=== PATIENT | female | born 1970 | race Hispanic/Latino ===

== ENCOUNTER 2021-10-30 23:37 | Emergency (ER) | payer OTHER ==
[~2021-10-30] VITALS: Ht 167.6 cm; Wt 90.7 kg
[2021-10-31] MEDS ORDERED: ACETAMINOPHEN 500 MG TABLET PO ONE (00:30)
[2021-10-31 01:22] LABS: BASOPHILS % (AUTO) 0.2 % (0.0-5.0); EOSINOPHILS % (AUTO) 0.1 % (0.0-8.0); HEMATOCRIT 37.3 % (36-48); LYMPHOCYTES % (AUTO) 9.4 % (21.0-51.0); MEAN CORPUSCULAR HEMOGLOBIN 29.9 pg (27.0-33.0); MEAN CORPUSCULAR HGB CONC 34.9 g/dL (32.0-36.0); MEAN CORPUSCULAR VOLUME 85.7 fL (79-99); MONOCYTES % (AUTO) 8.8 % (3.0-13.0); PLATELET COUNT (AUTO) 141 K/uL (130-400); RED BLOOD CELL COUNT(AUTO) 4.35 MIL/uL (4.00-5.50); RED CELL DISTRIBUTION WIDTH 13.2 % (11.0-15.5); WHITE BLOOD COUNT (AUTO) 12.4 K/uL (4.8-10.8)
[2021-10-31] MEDS ORDERED: KETOROLAC 15MG/ML VIAL (15MG/ML) IV ONE (01:30)
[2021-10-31] MEDS ORDERED: SOLU-MEDROL 125MG VIAL IVP ONE (01:30)
[2021-10-31 01:31] LABS: CREATININE 0.8 mg/dL (0.5-1.5); POTASSIUM 3.8 mmol/L (3.5-5.1)
[2021-10-31 01:35] LABS: ALBUMIN 3.1 g/dL (3.5-5.0); BILIRUBIN,TOTAL 0.6 mg/dL (0.2-1.0); TOTAL PROTEIN, SERUM 7.5 g/dL (6.0-8.3)
[2021-10-31 01:41] LABS: APPEARANCE,URINE Cloudy (CLEAR); BILIRUBIN,URINE Negative (NEGATIVE); COLOR,URINE Yellow (YELLOW); GLUCOSE, URINE (UA) >=1000 mg/dL (NEGATIVE); KETONES,URINE 40 mg/dL (NEGATIVE); LEUKOCYTE ESTERASE ,URINE Negative (NEGATIVE); NITRATE,URINE Positive (NEGATIVE); OCCULT BLOOD,URINE Large (NEGATIVE); PROTEIN,URINE POS 2+ mg/dL (NEGATIVE)
[2021-10-31 01:57] LABS: BACTERIA,URINE Many /HPF (None Seen)
[2021-10-31 01:58] LABS: SQUAMOUS EPITHELIAL CELL,UR Moderate /HPF (0-2)
[2021-10-31 02:20] LABS: CRP QUANTITATIVE 257.9 mg/L (0.00-9.0)
[2021-10-31] MEDS ORDERED: NAPR500T6 PO (02:20)
[2021-10-31] MEDS ORDERED: ACET-2079 PO (02:20)
[2021-10-31] MEDS ORDERED: CEPH500B PO (02:20)
[2021-10-31] MEDS ORDERED: 0.9% NACL 500ML IV.SOLN 500 ML IV ONE ×2 (02:23→02:30)
[2021-10-31] MEDS ORDERED: CEFTRIAXONE 1G VIAL IVP ONE (02:30)
[2021-10-31] MEDS ORDERED: PROCHLORPERAZINE 10MG/2ML INJ IV ONE (02:30)
[2021-10-31] MEDS ORDERED: DiphenhydrAMINE HCL 50 MG/ML VIAL IV ONE (02:30)
[2021-10-31 02:41] VITALS: BP 131/79
== END 2021-10-31 02:57 | disposition home or self-care (01) ==
LOC: EDH 23:37
DX: G56.01 Carpal tunnel syndrome, right upper limb (principal); N39.0 Urinary tract infection, site not specified; Z20.822 Contact with and (suspected) exposure to COVID-19; E11.9 Type 2 diabetes mellitus without complications; Z88.2 Allergy status to sulfonamides; Z79.1 Long term (current) use of non-steroidal anti-inflammatories (NSAID); Z79.52 Long term (current) use of systemic steroids
CPT/HCPCS: 36415; 80053; 81001; 85025; 86140; 87077; 87088; 87186; 87635; 87804 ×2; 87880; 96374; 96375; 99284; C9803; J0696; J0780; J1200; J1885; J2930; J7040

== ENCOUNTER 2025-04-08 16:18 | Emergency (ER) | payer BC ==
[~2025-04-08] VITALS: Ht 170.2 cm; Wt 91.9 kg
[~2025-04-08 16:18] MED LIST: ACET-2079 PO; CEPH500B PO; NAPR-1506 PO
[2025-04-08] MEDS: TETRACAINE HCL 0.5% 4 ML OPHTH SOLN OP SCH (17:08)
[2025-04-08] MEDS: FLUORESCEIN SODIUM 1 STRIP STRIP ONE (17:08)
[2025-04-08] MEDS: TETRACAINE HCL 0.5% 4 ML OPHTH SOLN ONE (17:08)
[2025-04-08] MEDS: FLUORESCEIN SODIUM 1 STRIP STRIP OP SCH (17:22)
[2025-04-08] MEDS: HYDROcodone/APAP 5/325 1 TAB TABLET PO SCH (17:24)
--- NOTE | 2025-04-08 17:29 | ERN ---
ED Note History of Present Illness Stated Complaint: EYE ISSUE Chief Complaint: Eye Problems Time Seen by MD: 16:25 Time Seen by Midlevel: 16:25 Dictation: Ms. Castorena is a 55-year-old female with history of hypertension and obesity who presented to the emergency department this afternoon for evaluation of eye problem. She states that yesterday she noticed her right eye was red. Today the entirety of the sclera is red and she states she does have some pain when she squints tightly; rates 6/10. She denies changes in vision. She denies headache. She denies fever, chills, shortness of breath, cough, chest pain, rhinorrhea, sinus pain/pressure, sore throat, abdominal pain, nausea, vomiting, diarrhea, dysuria, or dizziness. Allergies: Uncoded Allergies: SULFA (Allergy, Intermediate, HIVES, 10/30/21) SWELLING HIVES Home Meds Active Scripts Acetaminophen with Codeine (Acetaminophen-Cod #3 Tablet) 1 Each Tablet, 1 EACH PO QID, #15 TAB Prov:ROSALIND PRIEST MD 10/31/21 Cephalexin Monohydrate (Keflex) 500 Mg Cap, 500 MG PO BID for 5 Days, #10 CAP Prov:ROSALIND PRIEST MD 10/31/21 Naproxen (Naproxen) 500 Mg Tablet.dr, 500 MG PO BIDPC for 30 Days, #60 TAB Prov:ROSALIND PRIEST MD 10/31/21 Past Medical History Past Medical History: Hypertension, Other (obesity) Surgical History: Hysterectomy Surgical History Other: PARTIAL HYSTERECTOMY Social History: Negative, Lives with family History: Not Applicable RN Note Reviewed/Agreed w/PFSH: Yes Review of System Dictation REVIEW OF SYSTEMS: CONSTITUTIONAL: Patient denies fevers, chills, sweats and weight changes. EYES: Patient denies any vision changes. Reports redness to the left eye times 24 hours. She states today redness has increased and is painful when she blinks. Reports pain 6/10. EARS, NOSE, AND THROAT: No difficulties with hearing. No symptoms of rhinitis or sore throat. CARDIOVASCULAR: Patient denies chest pains, palpitations, orthopnea and paroxysmal nocturnal dyspnea. RESPIRATORY: No dyspnea on exertion, no wheezing or cough. GI: No nausea, vomiting, diarrhea, constipation, abdominal pain, hematochezia or melena. : No urinary hesitancy or dribbling. No nocturia or urinary frequency. No abnormal urethral discharge. MUSCULOSKELETAL: No myalgias or arthralgias. NEUROLOGIC: No chronic headaches, no seizures. Patient denies numbness, tingling or weakness. PSYCHIATRIC: Patient denies problems with mood disturbance. No problems with anxiety. ENDOCRINE: No excessive urination or excessive thirst. DERMATOLOGIC: Patient denies any rashes or skin changes. Initial Vital Sign VS Vital Signs Date Time Temp Pulse Resp B/P (MAP) Pulse Ox O2 Delivery O2 Flow Rate FiO2 04/08/25 16:20 97.5 73 16 158/94 96 Room Air 0 04/08/25 16:24 21 Physical Exam Dictation Vital signs: Reviewed. Afebrile Constitutional: No acute distress. Non-toxic appearing. Head/Face: Normocephalic, atraumatic. Eyes: Periorbital areas with no swelling, redness, or edema. Lids and lashes are normal. Pupils equal, round, reactive to light. 3 mm. Visual acuity 20/30 OU. EOM intact; no pain with movement. Conjunctiva diffusely injected. Fluorescein exam normal-no uptake, no corneal abrasion, ulcer, dendritic lesion, or foreign body noted. ENT: Pinnas intact and no signs of trauma or erythema. Ear canals clear and no discharge. TMs no erythema. No nasal discharge or bleeding noted. Oropharynx with no exudate, redness, swelling, masses, exudates, or evidence of obs truction. Uvula midline. Mucous membranes moist. No tenderness upon palpation of sinuses. Neck: Trachea midline, no masses palpated, and no cervical lymphadenopathy. No swelling. Supple, full range of motion. Chest/Axilla: No tenderness, no crepitus, no paradoxical movement, no retractions. Cardiovascular: Regular rate, regular rhythm, no murmur, no gallops. Symmetric pulses. No peripheral edema. Respiratory: Respirations even and unlabored. Lung sounds clear; no wheezes, rales or rhonchi. Gastrointestinal: Inspection is normal. No distention is appreciated. Bowel sounds are normal. No mass or organomegaly . There is no tenderness. No rebound. No rigidity. No voluntary or involuntary guarding. No Dudley's sign. Neurological: Normal speech, gross motor function intact, gross sensory function intact. No focal weakness/Paresthesia. Musculoskeletal/Extremities: All extremities have full range of motion, no pain or tenderness on palpation. Symmetric pulses. Integumentary: Intact. Skin is normal color, warm and dry. Cap refill less than 3 seconds. ED Course ED Course Orders Procedure Category Date Status Time Fluorescein Sodium PHA 04/08/25 Complete (Nigzf-L-Btdof At) 17:03 Tetracaine Hcl PHA 04/08/25 Complete (Pontocaine 0.5% 17:03 Tetracaine Hcl PHA 04/08/25 In Process (Pontocaine 0.5% 17:30 Fluorescein Sodium PHA 04/08/25 In Process (Lqfad-R-Tberz At) 17:30 Current Medications Medications (Trade) Dose Ordered Sig/Martin Route PRN Reason Start Time Stop Time Status Last Admin Dose Admin Fluorescein Sodium (Vnfps-F-Ffafy At) 1 strip ONCE OP 04/08/25 17:30 04/08/25 21:30 Fluorescein Sodium (Fwgai-N-Jeovk At) 1 strip STK-MED ONCE .ROUTE 04/08/25 17:03 04/08/25 17:03 DC Tetracaine HCl (Pontocaine 0.5% Ophth Soln) 1 OR 2 DROPS ONCE OP 04/08/25 17:30 04/08/25 21:30 Tetracaine HCl (Pontocaine 0.5% Ophth Soln) 20 drop STK-MED ONCE .ROUTE 04/08/25 17:03 04/08/25 17:04 DC Vital Signs Date Time Temp Pulse Resp B/P (MAP) Pulse Ox O2 Delivery O2 Flow Rate FiO2 04/08/25 16:24 97.5 73 16 158/94 96 Room Air* 0 21 04/08/25 16:20 97.5 73 16 158/94 96 Room Air 0 Uneventful ED course. Vital signs are stable. No vision changes bilateral vi sual acuity 20/30. Fluorescein exam normal-no uptake, corneal abrasion, ulcer, or dendritic lesion, or foreign body. She received dose [place] x1. Findings were discussed with patient and all questions were answered. Medical Decision Making MDM MDM: Differential diagnosis: Conjunctivitis (bacterial, viral, or allergic), episcleritis, blepharitis, preseptal cellulitis Rationale: Tests considered and ordered secondary to shared decision making include: Examination; fluorescein uptake Previous outside records reviewed: Old ER visits. Risk of complication and/or morbidity or mortality of patient management: None Medications-Per medication reconciliation Need for hospitalization: Patient does not meet criteria for hospitalization. Need for emergency major/minor surgery: No There are no social concerns with this patient. Prescription drug management: Ibuprofen Prescriptions will include symptomatic care Patient's prior external medical records from other ER visits were reviewed by me as indicated. Prior testing and results from previous visits were reviewed. Prior tests were taken into account with medical decision making and resource utilization, independent historian/historians were used to obtain complete medical history. I independently interpreted the test that were performed, results were reviewed by me and considered findings on radiology if ordered. Medical management and examination interpretation discussions were had by me with other qualified healthcare professionals as indicated for the patient's care. DX & DISP Disposition: Discharge Departure Impression: Primary Impression: Redness of left eye Additional Impression: Red eye Condition: Stable Additional Instructions: Your eye is red, but your exam today did not show any corneal injury, ulcer, foreign body or other serious abnormality. Your vision is stable, and there are no signs of dangerous infection or injury at this time. Avoid rubbing your eye as this can worsened irritation or introduce infection. You may use artificial tears (lubricating eyedrops, not redness relief drops) several times a day for comfort. Apply cool compress to the closed eyelid for 5-10 minutes at a time if the eye feels irritated or puffy. Do not wear contact lenses. Avoid eye make- up until symptoms clear. Return to the ER or seek medical it [place] immediately if you develop: Sudden for worsening eye pain. Vision changes, blurry in his, or loss of vision. Light sensitivity (photophobia). Swelling, discharge, or redness that rapidly worsens. Any sensation of foreign body that does not improve. See your primary care physician or an ice specialists within 1-3 days if redness or irritation persists return sooner if any new or worsening symptoms occur. Referrals: SELF,REFERRAL (PCP) Time of Disposition: 17:28 KRISTEN GOLD NP Apr 08, 2025 17:29
[2025-04-08 17:30] VITALS: BP 148/90; PULSE 70; RESP 16; TEMP 97.5; O2SAT 98
== END 2025-04-08 17:39 | disposition home or self-care (01) ==
LOC: EDH 16:18
DX: H57.89 Other specified disorders of eye and adnexa (principal); I10 Essential (primary) hypertension; E66.9 Obesity, unspecified; Z88.2 Allergy status to sulfonamides; Z90.711 Acquired absence of uterus with remaining cervical stump; Z68.31 Body mass index [BMI] 31.0-31.9, adult
CPT/HCPCS: 99283

== ENCOUNTER 2025-05-23 19:13 | Emergency (ER) | payer BC ==
[~2025-05-23] VITALS: Ht 167.6 cm; Wt 90.7 kg
--- NOTE | 2025-05-23 19:22 | ERN ---
ED Note History of Present Illness Stated Complaint: C/O PAIN TO LEFT KNEE; PT FELT IT POP AT NOON TODA Chief Complaint: Knee Injury/Swelling Time Seen by MD: 19:17 Dictation: PATIENT IS A 55-YEAR-OLD FEMALE STATES SHE WAS WALKING IN TODAY WHEN SHE FELT A POP TO HER LEFT KNEE AT NOON TODAY. SHE STATES SHE FEELS THE PAIN IS DEEP IN THE KNEE. SHE HAS A BRACE IN PLACE AND STATES SHE HAS HAD A PRIOR PATELLAR DISLOCATION IN THE PAST. THE PILL IS GROSSLY INTACT ON EXAM IN TRIAGE. DISTAL NEUROVASCULAR CMS INTACT. NOTHING PRIOR TO ARRIVAL FOR PAIN. Allergies: Uncoded Allergies: SULFA (Allergy, Intermediate, HIVES, 10/30/21) SWELLING HIVES Home Meds Active Scripts Acetaminophen with Codeine (Acetaminophen-Cod #3 Tablet) 1 Each Tablet, 1 EACH PO QID, #15 TAB Prov:ROSALIND PRIEST MD 10/31/21 Cephalexin Monohydrate (Keflex) 500 Mg Cap, 500 MG PO BID for 5 Days, #10 CAP Prov:ROSALIND PRIEST MD 10/31/21 Naproxen (Naproxen) 500 Mg Tablet.dr, 500 MG PO BIDPC for 30 Days, #60 TAB Prov:ROSALIND PRIEST MD 10/31/21 Past Medical History Past Medical History: Hypertension, Other Surgical History: Hysterectomy Surgical History Other: PARTIAL HYSTERECTOMY Social History: Negative, Lives with family History: Not Applicable RN Note Reviewed/Agreed w/PFSH: Yes Review of System Dictation CONSTITUTIONAL: NEGATIVE EXCEPT FOR HPI HEAD/FACE: NEGATIVE EXCEPT FOR HPI EENT: NEGATIVE EXCEPT FOR HPI RESPIRATORY: NEGATIVE EXCEPT FOR HPI GASTROINTESTINAL/ABDOMINAL: NEGATIVE EXCEPT FOR HPI GENITOURINARY: NEGATIVE EXCEPT FOR HPI MUSCULOSKELETAL: NEGATIVE EXCEPT FOR HPI LEFT KNEE PAIN INTEGUMENTARY: NEGATIVE EXCEPT FOR HPI NEUROLOGICAL/PSYCH: NEGATIVE EXCEPT FOR HPI HEMATOLOGIC/LYMPHATIC: NEGATIVE EXCEPT FOR HPI ALL SYSTEMS NEGATIVE, EXCEPT NOTED ABOVE. 13 POINT REVIEW OF SYSTEMS ASSESSED AND ALL NEGATIVE EXCEPT FOR ABOVE. Initial Vital Sign VS Vital Signs Date Time Temp Pulse Resp B/P (MAP) Pulse Ox O2 Delivery O2 Flow Rate FiO2 05/23/25 19:17 97.2 80 20 132/82 98 Room Air Physical Exam Dictation VITAL SIGNS REVIEWED GENERAL APPEARANCE: ALERT, ORIENTED X 3, MODERATE ACUTE DISTRESS, WELL DEVELOPED, NOURISHED. HEAD AND FACE: NON-TRAUMATIC. EYES: PERRL, PINK CONJUNCTIVAS, EYELID NO TRAUMA, ANTERIOR CHAMBER WITH ARCUS SENILIS. EARS: PINNAS INTACT AND NO SIGNS OF TRAUMA OR ERYTHEMA EAR CANALS CLEAR AND NO DISCHARGE TM NO ERYTHEMA NOSE: NO DISCHARGE, NO BLEEDING. OROPHARYNX: MOUTH NORMAL, TONGUE PINK, PHARYNX CLEAR,NO ERYTHEMA, TONSILS NO EXUDATES, NO ABSCESSES NOTED, MUCOUS MEMBRANE MOIST NECK: SUPPLE, NON-TENDER, NO THYROMEGALY, NO MASSES, NO JVD, NO BRUITS BREAST:DEFERRED CHEST:NO TENDERNESS, NO CREPITUS, NO PARADOXICAL MOVEMENT, NO RETRACTIONS LUNGS:CLEAR, WELL-VENTILATED, SYMMETRIC, NO RALES, NO WHEEZING, NO RHONCHI, NO STRIDOR, GOOD BREATH SOUNDS BILATERALLY HEART: REGULAR RATE, REGULAR RHYTHM, NO MURMUR, NO GALLOPS VASCULAR: NO PERIPHERAL EDEMA, ABDOMEN: SOFT, POSITIVE BOWEL SOUNDS, NONDISTENDED, NO GUARDING, NONTENDER, NO REBOUND, NO MASSES NO HEPATOMEGALY, NO SPLENOMEGALY, NO AN'S SIGN, NO HERNIAS. RECTAL: DEFERRED GENITAL: DEFERRED NEUROLOGICAL: NORMAL SPEECH, MOTOR FUNCTION INTACT, SENSORY FUNCTION INTACT MUSCULOSKELETAL: KNEE BRACE FROM HOME IN PLACE TO LEFT KNEE. PATELLA GROSSLY INTACT ON EXAM. NEUROVASCULAR CMS INTACT. SKIN: COLOR PINK, DRY, NO TURGOR, NO RASH, NO LACERATIONS, NO ABRASIONS, NO C ONTUSIONS. LYMPHATIC: DEFERRED Results (Laboratory/Radiology) Laboratory/Radiology 2030/RIGHT KNEE X-RAY WITH DEGENERATIVE CHANGES ONLY. PATELLA INTACT Labs Reviewed?: Yes ED Course ED Course Orders Procedure Category Date Status Time Knee 3vws Lt RAD 05/23/25 Taken 19:17 Hydrocodone/Apap PHA 05/23/25 Complete 5/325 ([place] 5/325mg) 19:30 Crutches W/Training CPOE 05/23/25 Transmitted (Er) 19:17 Current Medications Medications (Trade) Dose Ordered Sig/Martin Route PRN Reason Start Time Stop Time Status Last Admin Dose Admin Acetaminophen/ Hydrocodone Bitart (NORco 5/325MG) 1 tab ONCE ONCE PO 05/23/25 19:30 05/23/25 19:31 DC 05/23/25 19:58 Vital Signs Date Time Temp Pulse Resp B/P (MAP) Pulse Ox O2 Delivery O2 Flow Rate FiO2 05/23/25 19:17 97.2 80 20 132/82 98 Room Air 2030/LEFT KNEE X-RAY DEMONSTRATES DEGENERATIVE CHANGES ONLY PATIENT WILL BE DISCHARGED HOME WITH INTERNAL DERANGEMENT KNEE CRUTCHES PROVIDED PATIENT REFERRED TO DR. ALESSANDRO ALFARO YOUR ORTHOPEDIC SURGEON RACE IN PLACE FROM HOME DISTAL NEUROVASCULAR CMS INTACT TO LEFT FOOT Medical Decision Making MDM MEDICAL DECISION-MAKING BASED ON EMPIRIC TREATMENT FOR ACUTE KNEE PAIN LEFT KNEE X-RAY NEGATIVE OTHER THAN DEGENERATIVE CHANGES PATIENT WILL BE DISCHARGED HOME WITH INTERNAL DERANGEMENT SINCE SHE HEARD A POP AND WE WILL NEED AN MRI FOR DEFINITIVE EVALUATION OF HER PAIN REFERRED TO ORTHOPEDIC SURGEON SENT HOME WITH IBUPROFEN DX & DISP Disposition: Discharge Departure Impression: Primary Impression: Derangement of knee, left Additional Impression: Left knee DJD Condition: Stable Scripts Ibuprofen (Ibuprofen 800 mg Tab) 800 Mg Tab 800 MG PO Q8H PRN for fever or pain, #30 TAB 0 Refills Prov: BIJU DE LA TORRE 05/23/25 Additional Instructions: FOLLOW-UP WITH PRIMARY CARE PROVIDER IN 1 TO 2 DAYS. TAKE MEDICATIONS DIRECTED HERE IN THE EMERGENCY ROOM. OKAY TO CONTINUE HOME MEDICATIONS UNLESS OTHERWISE DISCUSSED DURING YOUR VISIT IN THE EMERGENCY ROOM TODAY. RETURN TO YOUR NEAREST EMERGENCY ROOM IF SYMPTOMS WORSEN OR IF THERE IS NO IMPROVEMENT. CALL 911 IF YOU NEED IMMEDIATE ASSISTANCE. TAKE TYLENOL OR MOTRIN [id number] NEEDED AND IF NO CONTRAINDICATIONS ARE PRESENT. INCREASE ORAL HYDRATION. A WOUND CULTURE OR URINE CULTURE WAS ORDERED HERE IN THE EMERGENCY ROOM DEPARTMENT PLEASE FOLLOW-UP WITH PRIMARY CARE PROVIDER AND ADVISE THEM TO GET REPEAT PORTS FROM OUR FACILITY. IF YOU HAD ANY MARLON WRAP/SPLINTS THAT WERE APPLIED HERE, PLEASE DO NOT REMOVE THEM UNTIL YOU SEE YOUR PRIMARY CARE OR SPECIALTY. SPLINT/CRUTCHES/NO WEIGHT-BEARING UNTIL CLEARED BY ORTHOPEDIC SURGEON, CALL FOR AN APPOINTMENT TOMORROW. COOL COMPRESSES TO KNEE THREE TO 4 TIMES A DAY. TAKE IBUPROFEN EVERY 6-8 HOURS WITH FOOD NEEDED FOR PAIN. Referrals: SARAH OLIVER MD (PCP) DOUG ALFARO MD Time of Disposition: 20:33 I have reviewed the case, and I agree with, Diagnosis and Plan BIJU DE LA TORRE May 23, 2025 19:22
[2025-05-23] MEDS: HYDROcodone/APAP 5/325 1 TAB TABLET PO ONE (19:58)
[2025-05-23] MEDS ORDERED: IBUP-2077 PO (20:34)
--- NOTE | 2025-05-23 20:48 | NUR ---
CRUTCHES GIVEN, CRUTCH TRAINING DONE.
[2025-05-23 20:50] VITALS: BP 128/78; PULSE 82; RESP 16; TEMP 97.6; O2SAT 97
--- NOTE | 2025-05-23 20:53 | HMCIMG ---
EXAM: CR right Knee, 3 View. CLINICAL HISTORY: RIGHT KNEE PAIN ONSET 12:00. TWISTED FELT A POP COMPARISON: None provided. FINDINGS: BONES: No acute fracture or aggressive appearing osseous lesion. JOINTS: Moderate tricompartmental degenerative changes SOFT TISSUES: The soft tissues are unremarkable. IMPRESSION: Moderate tricompartmental degenerative changes /[place]
== END 2025-05-23 20:51 | disposition home or self-care (01) ==
LOC: EDH 19:13
DX: M23.92 Unspecified internal derangement of left knee (principal); M17.12 Unilateral primary osteoarthritis, left knee; I10 Essential (primary) hypertension; Z88.2 Allergy status to sulfonamides; Z90.711 Acquired absence of uterus with remaining cervical stump
CPT/HCPCS: 73562; 99283